=== PATIENT | female | born 1980 | race Caucasian/White ===

== ENCOUNTER 2017-03-19 06:52 | Emergency (ER) | payer OTHER ==
[~2017-03-19] VITALS: Ht 160 cm; Wt 85.0 kg
[~2017-03-19 06:52] MED LIST: ALL DAY10 MG PO; ANTI-FUNGAL12 EX; AUGMENTIN875TAB PO; BIOTIN1000 MCG PO; CIPROFLOXACN500 MG PO; DENAVIR1 % EX; DIFLUCAN150 MG PO; ESTRACE2 M1 PO; ESTRING2 MG PO; FLONASE NASAL50 MCG; LAMICTAL100 M1 PO; LOTRISONE EX; MECLIZINE25 MG PO; METRONIDAZOL0.75 % VA; MULT VITAMI1 PO; PAROXETINE HCL10 MG PO; PROZAC20 MG PO; PYRIDIUM200 MG PO; ROCEPHIN 2250 MG/VIA IM; SB OMEPRAZOLE20 MG; SB OMEPRAZOLE20 MG PO; SYNTHROID75 MCG PO; TOPIRAGEN200 MG PO; TRAZODONE50 MG PO; VITAMIN D-32000 UNI1; VITAMIN D-32000 UNI1 PO; WELLBUTRIN SR150 MG PO; ZITHROMAX500 MG PO
[2017-03-19] MEDS ORDERED: XANAX0.25 MG PO (07:04)
[2017-03-19] MEDS ORDERED: EFFEXOR XR75 MG PO (07:05)
[2017-03-19] MEDS ORDERED: LAMICTAL100 M1 PO (07:05)
[2017-03-19 07:45] LABS: HEMATOCRIT 39.9 % (37.0-47.0); HEMOGLOBIN 13.5 g/dl (12.0-16.0); IMMATURE GRANULOCYTES 0.3 % (0.0-1.0); MEAN CELL VOLUME 87.5 fL CALC (80.0-100.0); MEAN CORPUSCULAR HGB 29.6 pG CALC (26.0-32.0); MEAN CORPUSCULAR HGB CONC 33.8 g/L CALC (32.0-36.0); NEUT# 4.83 thou/uL (2.00-7.15); RED BLOOD COUNT 4.56 mill/uL (4.20-5.60); RED CELL DISTRI WIDTH 11.8 % (11.5-15.5)
[2017-03-19 07:53] LABS: ALBUMIN 4.3 g/dL (3.2-5.0); ALKALINE PHOSPHATASE 90 u/l (38-126); ANION GAP 16 (6-22 (CALC)); BILIRUBIN, TOTAL 0.6 mg/dL (0.0-1.4); BUN 13 mg/dL (7-17); BUN/CREATININE RATIO 14 (12-20 (CALC)); CALCIUM 9.2 mg/dL (8.4-10.2); CARBON DIOXIDE 24 mmol/l (22-30); CHLORIDE 104 mmol/l (95-108); CREATININE 0.9 mg/dL (0.5-1.0); GFR > 60 ML/MIN (>=60 (CALC)); GFR FOR AFR.AMER. > 60 ML/MIN (>=60 (CALC)); GLUCOSE 106 mg/dL (65-105); POTASSIUM 3.7 mmol/l (3.5-5.1); SGOT/AST 48 u/l (14-36); SGPT/ALT 21 u/l (9-52); SODIUM 140 mmol/l (137-146); TOTAL PROTEIN 7.2 g/dL (6.3-8.2)
[2017-03-19 08:05] LABS: MYOGLOBIN 22 ng/mL (0 - 62)
[2017-03-19 08:42] VITALS: BP 104/57
== END 2017-03-19 08:45 | disposition home or self-care (01) | DRG 313 ==
LOC: ED 06:52
PROVIDERS: Emergency Medicine
DX: R07.89 Other chest pain (principal)

== ENCOUNTER 2017-04-24 06:44 | Emergency (ER) | payer OTHER ==
[~2017-04-24] VITALS: Ht 160 cm; Wt 86.0 kg
[~2017-04-24 06:44] MED LIST changes: +EFFEXOR XR75 MG PO; +XANAX0.25 MG PO
[2017-04-24] MEDS ORDERED: ESTRACE2 MG PO (07:01)
[2017-04-24 07:54] LABS: HEMATOCRIT 40.6 % (37.0-47.0); HEMOGLOBIN 13.6 g/dl (12.0-16.0); IMMATURE GRANULOCYTES 0.2 % (0.0-1.0); MEAN CELL VOLUME 88.8 fL CALC (80.0-100.0); MEAN CORPUSCULAR HGB 29.8 pG CALC (26.0-32.0); MEAN CORPUSCULAR HGB CONC 33.5 g/L CALC (32.0-36.0); NEUT# 3.49 thou/uL (2.00-7.15); RED BLOOD COUNT 4.57 mill/uL (4.20-5.60); RED CELL DISTRI WIDTH 12.2 % (11.5-15.5)
[2017-04-24 08:12] LABS: ALBUMIN 4.1 g/dL (3.2-5.0); ALKALINE PHOSPHATASE 76 u/l (38-126); ANION GAP 13 (6-22 (CALC)); BILIRUBIN, TOTAL 0.5 mg/dL (0.0-1.4); BUN 12 mg/dL (7-17); BUN/CREATININE RATIO 16 (12-20 (CALC)); CALCIUM 9.3 mg/dL (8.4-10.2); CARBON DIOXIDE 27 mmol/l (22-30); CHLORIDE 105 mmol/l (95-108); CREATININE 0.7 mg/dL (0.5-1.0); GFR > 60 ML/MIN (>=60 (CALC)); GFR FOR AFR.AMER. > 60 ML/MIN (>=60 (CALC)); GLUCOSE 83 mg/dL (65-105); POTASSIUM 4.4 mmol/l (3.5-5.1); SGOT/AST 26 u/l (14-36); SGPT/ALT 32 u/l (9-52); SODIUM 140 mmol/l (137-146); TOTAL PROTEIN 6.7 g/dL (6.3-8.2)
[2017-04-24] MEDS ORDERED: FIORICET PO (08:57)
[2017-04-24 09:01] VITALS: BP 105/60
== END 2017-04-24 09:11 | disposition home or self-care (01) | DRG 103 ==
LOC: ED 06:44
PROVIDERS: Emergency Medicine
DX: G43.909 Migraine, unspecified, not intractable, without status migrainosus (principal); H53.8 Other visual disturbances; R11.2 Nausea with vomiting, unspecified

== ENCOUNTER 2017-07-05 21:42 | Emergency (ER) | payer OTHER ==
[~2017-07-05] VITALS: Ht 160 cm; Wt 94.0 kg
[~2017-07-05 21:42] MED LIST changes: +ESTRACE2 MG PO; +FIORICET PO
[2017-07-05 22:30] VITALS: BP 131/69
[2017-07-05] MEDS ORDERED: GENTAMICIN0.3 % OS (22:35)
== END 2017-07-05 22:30 | disposition home or self-care (01) | DRG 125 ==
LOC: ED 21:42
DX: H10.89 Other conjunctivitis (principal); F31.9 Bipolar disorder, unspecified; F90.9 Attention-deficit hyperactivity disorder, unspecified type

== ENCOUNTER 2017-09-13 21:13 | Emergency (ER) | payer OTHER ==
[~2017-09-13] VITALS: Ht 160 cm; Wt 95.4 kg
[~2017-09-13 21:13] MED LIST changes: +GENTAMICIN0.3 % OS
[2017-09-13 22:22] LABS: URINE BILIRUBIN - DIPSTICK NEGATIVE (NEGATIVE); URINE BLOOD DIPSTICK NEGATIVE (NEGATIVE); URINE COLOR YELLOW; URINE GLUCOSE - DIPSTICK NEGATIVE (NEGATIVE); URINE KETONE NEGATIVE (NEGATIVE); URINE LEUK ESTERASE NEGATIVE (NEGATIVE); URINE NITRITE - DIPSTICK NEGATIVE (Negative); URINE PH 5.5 (4.5-8.0); URINE PROTEIN - DIPSTICK NEGATIVE (NEG-TRACE); URINE SPECIFIC GRAVITY >=1.030
[2017-09-13 22:25] LABS: URINE CLARITY CLEAR
[2017-09-13] MEDS ORDERED: BACTRIM DS1 TAB PO (22:36)
[2017-09-13] MEDS ORDERED: DIFLUCAN100 M1 PO (22:36)
[2017-09-13 23:00] VITALS: BP 112/69
== END 2017-09-13 22:59 | disposition home or self-care (01) | DRG 696 ==
LOC: ED 21:13
PROVIDERS: Emergency Medicine
DX: R30.0 Dysuria (principal); N35.9 Urethral stricture, unspecified; R35.0 Frequency of micturition

== ENCOUNTER 2017-09-24 06:58 | Emergency (ER) | payer OTHER ==
[~2017-09-24] VITALS: Ht 160 cm; Wt 95.0 kg
[~2017-09-24 06:58] MED LIST changes: +BACTRIM DS1 TAB PO; +DIFLUCAN100 M1 PO
[2017-09-24] MEDS ORDERED: LEVOTHYROXIN50 MCG PO (07:22)
[2017-09-24] MEDS ORDERED: ALPRAZOLAM0.5 MG PO (07:23)
[2017-09-24] MEDS ORDERED: VENLAFAXINE H37.5 MG PO (07:24)
[2017-09-24] MEDS ORDERED: ARIPIPRAZOLE10 MG PO (07:24)
[2017-09-24] MEDS ORDERED: VYVANSE60 MG PO (07:25)
[2017-09-24] MEDS ORDERED: TOPIRAMATE100 MG PO (07:26)
[2017-09-24 07:52] LABS: HEMATOCRIT 43.4 % (37.0-47.0); HEMOGLOBIN 14.5 g/dl (12.0-16.0); IMMATURE GRANULOCYTES 0.1 % (0.0-1.0); MEAN CELL VOLUME 88.6 fL CALC (80.0-100.0); MEAN CORPUSCULAR HGB 29.6 pG CALC (26.0-32.0); MEAN CORPUSCULAR HGB CONC 33.4 g/L CALC (32.0-36.0); NEUT# 3.77 thou/uL (2.00-7.15); RED BLOOD COUNT 4.9 mill/uL (4.20-5.60); RED CELL DISTRI WIDTH 11.9 % (11.5-15.5)
[2017-09-24 08:04] LABS: INFLUENZA A NONE DETECTED (NONE DETECT); INFLUENZA B NONE DETECTED (NONE DETECT)
[2017-09-24 08:18] LABS: ALBUMIN 4.3 g/dL (3.2-5.0); ALKALINE PHOSPHATASE 91 u/l (38-126); ANION GAP 16 (6-22 (CALC)); BILIRUBIN, TOTAL 0.4 mg/dL (0.0-1.4); BUN 13 mg/dL (7-17); BUN/CREATININE RATIO 12 (12-20 (CALC)); CALCIUM 9.7 mg/dL (8.4-10.2); CARBON DIOXIDE 22 mmol/l (22-30); CHLORIDE 111 mmol/l (95-108); CREATININE 1.1 mg/dL (0.5-1.0); GFR 56 ML/MIN (>=60 (CALC)); GFR FOR AFR.AMER. > 60 ML/MIN (>=60 (CALC)); GLUCOSE 109 mg/dL (65-105); POTASSIUM 4.4 mmol/l (3.5-5.1); SGOT/AST 23 u/l (14-36); SGPT/ALT 28 u/l (9-52); SODIUM 146 mmol/l (137-146); TOTAL PROTEIN 6.9 g/dL (6.3-8.2)
[2017-09-24 08:40] VITALS: BP 117/62
== END 2017-09-24 08:55 | disposition home or self-care (01) | DRG 880 ==
LOC: ED 06:58
PROVIDERS: Emergency Medicine
DX: F41.9 Anxiety disorder, unspecified (principal); B34.9 Viral infection, unspecified; R07.89 Other chest pain; R53.1 Weakness; M79.1 Myalgia

== ENCOUNTER 2018-08-27 09:35 | Emergency (ER) | payer OTHER ==
[~2018-08-27] VITALS: Ht 160 cm; Wt 93.3 kg
[~2018-08-27 09:35] MED LIST changes: +ALPRAZOLAM0.5 MG PO; +ARIPIPRAZOLE10 MG PO; +LEVOTHYROXIN50 MCG PO; +TOPIRAMATE100 MG PO; +VENLAFAXINE H37.5 MG PO; +VYVANSE60 MG PO
[2018-08-27] MEDS ORDERED: ADDERALL XR25 MG PO (09:59)
[2018-08-27 11:02] LABS: URINE BILIRUBIN - DIPSTICK NEGATIVE (NEGATIVE); URINE BLOOD DIPSTICK NEGATIVE (NEGATIVE); URINE COLOR YELLOW; URINE GLUCOSE - DIPSTICK NEGATIVE (NEGATIVE); URINE KETONE NEGATIVE (NEGATIVE); URINE LEUK ESTERASE NEGATIVE (NEGATIVE); URINE NITRITE - DIPSTICK NEGATIVE (Negative); URINE PROTEIN - DIPSTICK NEGATIVE (NEG-TRACE); URINE SPECIFIC GRAVITY 1.015; URINE UROBILINOGEN - DIPSTICK 0.2 E.U./dL (0.2)
[2018-08-27 11:10] LABS: URINE CLARITY CLEAR
[2018-08-27 11:11] LABS: BARBITURATES NEGATIVE (NEGATIVE); COCAINE NEGATIVE (NEGATIVE); METHADONE NEGATIVE (NEGATIVE); OXCYCODONE NEGATIVE (NEGATIVE); TETRAHYDROCANNABIONOL NEGATIVE (NEGATIVE); TRICYLIC ANTIDEPRESSANTS NEGATIVE (NEGATIVE)
[2018-08-27 11:15] LABS: HEMATOCRIT 43.6 % (37.0-47.0); HEMOGLOBIN 14.5 g/dl (12.0-16.0); IMMATURE GRANULOCYTES 0.3 % (0.0-5.0); MEAN CELL VOLUME 87.9 fL CALC (80.0-100.0); MEAN CORPUSCULAR HGB 29.2 pG CALC (26.0-32.0); MEAN CORPUSCULAR HGB CONC 33.3 g/L CALC (32.0-36.0); NEUT# 4.03 thou/uL (2.00-7.15); RED BLOOD COUNT 4.96 mill/uL (4.20-5.60); RED CELL DISTRI WIDTH 12.5 % (11.5-15.5)
[2018-08-27 11:16] LABS: ALBUMIN 4.3 g/dL (3.2-5.0); ALKALINE PHOSPHATASE 118 u/l (38-126); ANION GAP 14 (6-22 (CALC)); BILIRUBIN, TOTAL 0.4 mg/dL (0.0-1.4); BUN 14 mg/dL (7-17); BUN/CREATININE RATIO 14 (12-20 (CALC)); CARBON DIOXIDE 22 mmol/l (22-30); CHLORIDE 111 mmol/l (95-108); GFR > 60 ML/MIN (>=60 (CALC)); GFR FOR AFR.AMER. > 60 ML/MIN (>=60 (CALC)); POTASSIUM 4.5 mmol/l (3.5-5.1); SGOT/AST 17 u/l (14-36); SODIUM 142 mmol/l (137-146); TOTAL PROTEIN 7.2 g/dL (6.3-8.2)
[2018-08-27] MEDS ORDERED: TORADOL PO (11:46)
[2018-08-27 12:07] VITALS: BP 126/72
== END 2018-08-27 12:07 | disposition home or self-care (01) ==
LOC: ED 09:35
PROVIDERS: Emergency Medicine
DX: R51 Headache (principal); G89.29 Other chronic pain; R11.0 Nausea; R07.81 Pleurodynia; R10.9 Unspecified abdominal pain

== ENCOUNTER 2018-09-07 08:29 | Emergency (ER) | payer OTHER ==
[~2018-09-07] VITALS: Ht 160 cm; Wt 93.2 kg
[~2018-09-07 08:29] MED LIST changes: +ADDERALL XR25 MG PO; +TORADOL PO
[2018-09-07 09:36] VITALS: BP 119/64
[2018-09-07] MEDS ORDERED: BACTRIM DS1 TAB PO (09:36)
[2018-09-07] MEDS ORDERED: MUPIROCIN21 TOP (09:38)
== END 2018-09-07 09:43 | disposition home or self-care (01) ==
LOC: ED 08:29
DX: S00.85XA Superficial foreign body of other part of head, initial encounter (principal)

== ENCOUNTER 2019-02-23 16:24 | Emergency (ER) | payer OTHER ==
[~2019-02-23] VITALS: Ht 160 cm; Wt 100.0 kg
[~2019-02-23 16:24] MED LIST changes: +MUPIROCIN21 TOP
[2019-02-23 17:02] LABS: HEMATOCRIT 40.3 % (37.0-47.0); HEMOGLOBIN 13.2 g/dl (12.0-16.0); IMMATURE GRANULOCYTES 0.3 % (0.0-5.0); MEAN CELL VOLUME 85.4 fL CALC (80.0-100.0); MEAN CORPUSCULAR HGB CONC 32.8 g/L CALC (32.0-36.0); NEUT# 4.01 thou/uL (2.00-7.15); RED BLOOD COUNT 4.72 mill/uL (4.20-5.60); RED CELL DISTRI WIDTH 12.6 % (11.5-15.5)
[2019-02-23] MEDS ORDERED: VALTREX1 GM PO (17:27)
[2019-02-23] MEDS ORDERED: PREDNISONE50 MG PO (17:27)
[2019-02-23 17:38] VITALS: BP 141/70
== END 2019-02-23 17:40 | disposition home or self-care (01) ==
LOC: ED 16:24
PROVIDERS: Family Medicine
DX: J02.9 Acute pharyngitis, unspecified (principal); B00.1 Herpesviral vesicular dermatitis; R50.9 Fever, unspecified; R05 Cough; R06.02 Shortness of breath; J34.89 Other specified disorders of nose and nasal sinuses

== ENCOUNTER 2019-05-10 19:14 | Emergency (ER) | payer OTHER ==
[~2019-05-10] VITALS: Ht 160 cm; Wt 104.0 kg
[~2019-05-10 19:14] MED LIST changes: +PREDNISONE50 MG PO; +VALTREX1 GM PO
[2019-05-10] MEDS ORDERED: GENTAK0.32 OU (19:41)
[2019-05-10 19:45] VITALS: BP 134/86
== END 2019-05-10 19:45 | disposition home or self-care (01) ==
LOC: ED 19:14
DX: H10.13 Acute atopic conjunctivitis, bilateral (principal)

== ENCOUNTER 2019-07-05 16:32 | Emergency (ER) | payer OTHER ==
[~2019-07-05] VITALS: Ht 160 cm; Wt 110.0 kg
[~2019-07-05 16:32] MED LIST changes: +GENTAK0.32 OU
[2019-07-05 17:10] LABS: HEMATOCRIT 42.9 % (37.0-47.0); HEMOGLOBIN 14.1 g/dl (12.0-16.0); IMMATURE GRANULOCYTES 0.3 % (0.0-5.0); MEAN CORPUSCULAR HGB 28.3 pG CALC (26.0-32.0); MEAN CORPUSCULAR HGB CONC 32.9 g/L CALC (32.0-36.0); NEUT# 6.01 thou/uL (2.00-7.15); RED BLOOD COUNT 4.99 mill/uL (4.20-5.60); RED CELL DISTRI WIDTH 12.6 % (11.5-15.5)
[2019-07-05 17:16] LABS: ALBUMIN 4.4 g/dL (3.2-5.0); ALKALINE PHOSPHATASE 138 u/l (38-126); ANION GAP 15 (6-22 (CALC)); BILIRUBIN, TOTAL 0.5 mg/dL (0.0-1.4); BUN 17 mg/dL (7-17); BUN/CREATININE RATIO 20 (12-20 (CALC)); CARBON DIOXIDE 26 mmol/l (22-30); CHLORIDE 103 mmol/l (95-108); CREATININE 0.8 mg/dL (0.5-1.0); GFR > 60 ML/MIN (>=60 (CALC)); GFR FOR AFR.AMER. > 60 ML/MIN (>=60 (CALC)); POTASSIUM 4.5 mmol/l (3.5-5.1); SGOT/AST 25 u/l (14-36); SODIUM 140 mmol/l (137-146); TOTAL PROTEIN 7.4 g/dL (6.3-8.2)
[2019-07-05 17:51] LABS: URINE BILIRUBIN - DIPSTICK NEGATIVE (NEGATIVE); URINE BLOOD DIPSTICK NEGATIVE (NEGATIVE); URINE COLOR YELLOW; URINE GLUCOSE - DIPSTICK NEGATIVE (NEGATIVE); URINE KETONE NEGATIVE (NEGATIVE); URINE LEUK ESTERASE NEGATIVE (NEGATIVE); URINE NITRITE - DIPSTICK NEGATIVE (Negative); URINE PROTEIN - DIPSTICK NEGATIVE (NEG-TRACE); URINE SPECIFIC GRAVITY >=1.030; URINE UROBILINOGEN - DIPSTICK 0.2 E.U./dL (0.2)
[2019-07-05 19:16] VITALS: BP 117/62
== END 2019-07-05 19:17 | disposition home or self-care (01) ==
LOC: ED 16:32
PROVIDERS: Emergency Medicine
DX: R07.89 Other chest pain (principal)

== ENCOUNTER 2019-11-26 | Emergency (ER) | payer OTHER ==
[2019-11-26 21:23] LABS: URINE BILIRUBIN - DIPSTICK NEGATIVE (NEGATIVE); URINE BLOOD DIPSTICK NEGATIVE (NEGATIVE); URINE COLOR YELLOW; URINE GLUCOSE - DIPSTICK NEGATIVE (NEGATIVE); URINE KETONE NEGATIVE (NEGATIVE); URINE NITRITE - DIPSTICK NEGATIVE (Negative); URINE PH 6.5 (4.5-8.0); URINE PROTEIN - DIPSTICK NEGATIVE (NEG-TRACE); URINE SPECIFIC GRAVITY 1.025; URINE UROBILINOGEN - DIPSTICK 0.2 E.U./dL (0.2)
[2019-11-26 21:29] LABS: URINE LEUK ESTERASE SMALL (NEGATIVE)
[2019-11-26 21:35] LABS: HEMATOCRIT 43.6 % (37.0-47.0); HEMOGLOBIN 13.9 g/dl (12.0-16.0); IMMATURE GRANULOCYTES 0.2 % (0.0-5.0); MEAN CELL VOLUME 86.2 fL CALC (80.0-100.0); MEAN CORPUSCULAR HGB 27.5 pG CALC (26.0-32.0); MEAN CORPUSCULAR HGB CONC 31.9 g/L CALC (32.0-36.0); NEUT# 4.32 thou/uL (2.00-7.15); RED BLOOD COUNT 5.06 mill/uL (4.20-5.60); RED CELL DISTRI WIDTH 12.4 % (11.5-15.5)
[2019-11-26 21:45] LABS: ALBUMIN 4.4 g/dL (3.2-5.0); ALKALINE PHOSPHATASE 129 u/l (38-126); AMYLASE 79 u/l (30-110); ANION GAP 14 (6-22 (CALC)); BILIRUBIN, TOTAL 0.5 mg/dL (0.0-1.4); BUN 13 mg/dL (7-17); BUN/CREATININE RATIO 14 (12-20 (CALC)); CARBON DIOXIDE 26 mmol/l (22-30); CHLORIDE 103 mmol/l (95-108); CREATININE 0.9 mg/dL (0.5-1.0); GFR > 60 ML/MIN (>=60 (CALC)); GFR FOR AFR.AMER. > 60 ML/MIN (>=60 (CALC)); LIPASE 159 u/l (23-300); POTASSIUM 4.7 mmol/l (3.5-5.1); SGOT/AST 24 u/l (14-36); SODIUM 139 mmol/l (137-146); TOTAL PROTEIN 7.6 g/dL (6.3-8.2)
[2019-11-26 21:47] LABS: URINE BACTERIA FEW hpf; URINE SQUAMOUS EPITHELIAL CELL FEW EPI/hpf (0-FEW)
[2019-11-26 22:15] LABS: TSH, 3RD GENERATION 2.35 uIU/mL (0.47 - 4.68)
[2019-11-26] MEDS ORDERED: PROTONIX40 MG PO (22:31)
[2019-11-26] MEDS ORDERED: NP THYROID30 MG PO (23:27)
[2019-11-26] MEDS ORDERED: DULOXETINE HYDR60 MG PO (23:38)
== END 2019-11-26 22:45 | disposition home or self-care (01) ==
PROVIDERS: Family Medicine
DX: K29.70 Gastritis, unspecified, without bleeding (principal); E03.9 Hypothyroidism, unspecified; Z87.11 Personal history of peptic ulcer disease

== ENCOUNTER 2020-01-04 | Emergency (ER) | payer OTHER ==
[~2020-01-04] MED LIST changes: +DULOXETINE HYDR60 MG PO; +NP THYROID30 MG PO; +PROTONIX40 MG PO
== END 2020-01-04 20:40 | disposition home or self-care (01) ==
DX: S90.412A Abrasion, left great toe, initial encounter (principal); W20.8XXA Other cause of strike by thrown, projected or falling object, initial encounter; Y93.89 Activity, other specified; Y92.009 Unspecified place in unspecified non-institutional (private) residence as the place of occurrence of the external cause

== ENCOUNTER 2020-03-01 23:08 | Emergency (ER) | payer OTHER ==
[2020-03-01] MEDS ORDERED: ASPIRIN81 MG PO (23:42)
[2020-03-01] MEDS ORDERED: ARMOUR THYRO30 MG PO (23:42)
[2020-03-01] MEDS ORDERED: METOPROL TAR25 MG PO (23:42)
[2020-03-02 00:13] LABS: HEMATOCRIT 38.6 % (37.0-47.0); HEMOGLOBIN 12.5 g/dl (12.0-16.0); IMMATURE GRANULOCYTES 0.5 % (0.0-5.0); MEAN CELL VOLUME 88.5 fL CALC (80.0-100.0); MEAN CORPUSCULAR HGB 28.7 pG CALC (26.0-32.0); MEAN CORPUSCULAR HGB CONC 32.4 g/dL CAL (32.0-36.0); NEUT# 6.03 thou/uL (2.00-7.15); RED BLOOD COUNT 4.36 mill/uL (4.20-5.60); RED CELL DISTRI WIDTH 12.9 % (11.5-15.5)
[2020-03-02 00:31] LABS: ALKALINE PHOSPHATASE 132 u/l (38-126); ANION GAP 10 (6-22 (CALC)); BILIRUBIN, TOTAL 0.4 mg/dL (0.0-1.4); BUN 15 mg/dL (7-17); BUN/CREATININE RATIO 19 (12-20 (CALC)); CARBON DIOXIDE 27 mmol/l (22-30); CHLORIDE 105 mmol/l (95-108); CREATININE 0.8 mg/dL (0.5-1.0); GFR > 60 ML/MIN (>=60 (CALC)); GFR FOR AFR.AMER. > 60 ML/MIN (>=60 (CALC)); POTASSIUM 4.3 mmol/l (3.5-5.1); SGOT/AST 31 u/l (14-36); SODIUM 139 mmol/l (137-146); TOTAL PROTEIN 6.8 g/dL (6.3-8.2)
[2020-03-02 00:41] LABS: ACT PARTIAL THROMBO TIME 26.1 SECONDS (20.0-32.5); D-DIMER 0.17 mg/L (0.19-0.60); INTERNATIONAL NORMALIZED RATIO 0.9 RATIO (0.7-1.3); PROTHROMBIN TIME 9.3 SECONDS (9.0-12.5)
[2020-03-02 00:43] LABS: MYOGLOBIN 23 ng/mL (0 - 62)
[2020-03-02 01:02] LABS: TSH, 3RD GENERATION 4.81 uIU/mL (0.47 - 4.68)
[2020-03-02 01:34] VITALS: BP 134/60
== END 2020-03-02 01:35 | disposition home or self-care (01) ==
LOC: ED 23:08
PROVIDERS: Family Medicine
DX: K29.70 Gastritis, unspecified, without bleeding (principal); E03.9 Hypothyroidism, unspecified; R07.89 Other chest pain; R19.7 Diarrhea, unspecified; R11.10 Vomiting, unspecified

== ENCOUNTER 2020-03-27 15:16 | Emergency (ER) | payer OTHER ==
[~2020-03-27] VITALS: Ht 160 cm; Wt 106.8 kg
[~2020-03-27 15:16] MED LIST changes: +ARMOUR THYRO30 MG PO; +ASPIRIN81 MG PO; +METOPROL TAR25 MG PO
[2020-03-27] MEDS ORDERED: PENICILLN VK500 MG PO (15:37)
[2020-03-27 15:40] VITALS: BP 116/76
[2020-03-27] MEDS ORDERED: DIFLUCAN100 M1 PO ×2 (15:43)
[2020-03-27] MEDS ORDERED: TRAZODONE50 MG PO (15:44)
[2020-03-27] MEDS ORDERED: FLUOXETINE HCL20 MG PO (15:44)
== END 2020-03-27 15:40 | disposition home or self-care (01) ==
LOC: ED 15:16
DX: K02.9 Dental caries, unspecified (principal); K04.7 Periapical abscess without sinus

== ENCOUNTER 2020-06-19 15:54 | Emergency (ER) | payer OTHER ==
[~2020-06-19] VITALS: Ht 160 cm; Wt 118.0 kg
[~2020-06-19 15:54] MED LIST changes: +FLUOXETINE HCL20 MG PO; +PENICILLN VK500 MG PO
[2020-06-19 16:45] LABS: HEMATOCRIT 39.1 % (37.0-47.0); HEMOGLOBIN 12.5 g/dl (12.0-16.0); IMMATURE GRANULOCYTES 0.4 % (0.0-5.0); MEAN CELL VOLUME 86.7 fL CALC (80.0-100.0); MEAN CORPUSCULAR HGB 27.7 pG CALC (26.0-32.0); NEUT# 4.84 thou/uL (2.00-7.15); RED BLOOD COUNT 4.51 mill/uL (4.20-5.60)
[2020-06-19 16:46] LABS: URINE BILIRUBIN - DIPSTICK NEGATIVE (NEGATIVE); URINE BLOOD DIPSTICK NEGATIVE (NEGATIVE); URINE COLOR YELLOW; URINE GLUCOSE - DIPSTICK NEGATIVE (NEGATIVE); URINE KETONE NEGATIVE (NEGATIVE); URINE LEUK ESTERASE NEGATIVE (NEGATIVE); URINE NITRITE - DIPSTICK NEGATIVE (Negative); URINE PROTEIN - DIPSTICK NEGATIVE (NEG-TRACE); URINE SPECIFIC GRAVITY >=1.030; URINE UROBILINOGEN - DIPSTICK 0.2 E.U./dL (0.2)
[2020-06-19] MEDS ORDERED: OMEPRAZOLE10 MG PO (16:58)
[2020-06-19 17:00] LABS: ALBUMIN 4.1 g/dL (3.2-5.0); ALKALINE PHOSPHATASE 122 u/l (38-126); ANION GAP 11 (6-22 (CALC)); BILIRUBIN, TOTAL 0.5 mg/dL (0.0-1.4); BUN 24 mg/dL (7-17); BUN/CREATININE RATIO 21 (12-20 (CALC)); CARBON DIOXIDE 29 mmol/l (22-30); CHLORIDE 102 mmol/l (95-108); CREATININE 1.1 mg/dL (0.5-1.0); GFR 56 ML/MIN (>=60 (CALC)); GFR FOR AFR.AMER. > 60 ML/MIN (>=60 (CALC)); SGOT/AST 28 u/l (14-36); SODIUM 137 mmol/l (137-146)
[2020-06-19 17:45] VITALS: BP 138/70
== END 2020-06-19 17:46 | disposition home or self-care (01) ==
LOC: ED 15:54
DX: R51 Headache (principal); G43.909 Migraine, unspecified, not intractable, without status migrainosus; Z20.828 Contact with and (suspected) exposure to other viral communicable diseases

== ENCOUNTER 2020-07-01 16:46 | Emergency (ER) | payer OTHER ==
[~2020-07-01] VITALS: Ht 160 cm; Wt 121.4 kg
[~2020-07-01 16:46] MED LIST changes: +OMEPRAZOLE10 MG PO
[2020-07-01] MEDS ORDERED: CLINDAMYCIN300 M1 PO (17:02)
[2020-07-01] MEDS ORDERED: LEXAPRO20 MG PO (17:04)
[2020-07-01 17:05] VITALS: BP 145/63
== END 2020-07-01 17:15 | disposition home or self-care (01) ==
LOC: ED 16:46
DX: K08.89 Other specified disorders of teeth and supporting structures (principal)

== ENCOUNTER 2020-09-11 17:42 | Emergency (ER) | payer OTHER ==
[~2020-09-11] VITALS: Ht 160 cm; Wt 127.0 kg
[~2020-09-11 17:42] MED LIST changes: +CLINDAMYCIN300 M1 PO; +LEXAPRO20 MG PO
[2020-09-11 18:29] LABS: HEMOGLOBIN 13.1 g/dl (12.0-16.0); IMMATURE GRANULOCYTES 0.2 % (0.0-5.0); MEAN CORPUSCULAR HGB 27.5 pG CALC (26.0-32.0); NEUT# 4.53 thou/uL (2.00-7.15); RED BLOOD COUNT 4.77 mill/uL (4.20-5.60); RED CELL DISTRI WIDTH 12.9 % (11.5-15.5)
[2020-09-11 18:32] LABS: URINE BILIRUBIN - DIPSTICK NEGATIVE (NEGATIVE); URINE BLOOD DIPSTICK NEGATIVE (NEGATIVE); URINE COLOR YELLOW; URINE GLUCOSE - DIPSTICK NEGATIVE (NEGATIVE); URINE KETONE NEGATIVE (NEGATIVE); URINE LEUK ESTERASE NEGATIVE (NEGATIVE); URINE NITRITE - DIPSTICK NEGATIVE (Negative); URINE PROTEIN - DIPSTICK NEGATIVE (NEG-TRACE); URINE UROBILINOGEN - DIPSTICK 0.2 E.U./dL (0.2)
[2020-09-11 18:34] LABS: HCG SERUM/URINE (NEG/POS) NEGATIVE (NEGATIVE)
[2020-09-11 18:36] LABS: ALBUMIN 4.1 g/dL (3.2-5.0); ALKALINE PHOSPHATASE 110 u/l (38-126); ANION GAP 10 (6-22 (CALC)); BILIRUBIN, TOTAL 0.5 mg/dL (0.0-1.4); BUN 13 mg/dL (7-17); BUN/CREATININE RATIO 11 (12-20 (CALC)); CARBON DIOXIDE 28 mmol/l (22-30); CHLORIDE 107 mmol/l (95-108); CREATININE 1.2 mg/dL (0.5-1.0); GFR 50 ML/MIN (>=60 (CALC)); GFR FOR AFR.AMER. > 60 ML/MIN (>=60 (CALC)); LIPASE 197 u/l (23-300); POTASSIUM 4.3 mmol/l (3.5-5.1); SGOT/AST 30 u/l (14-36); SODIUM 140 mmol/l (137-146)
[2020-09-11] MEDS ORDERED: TORADOL PO (19:27)
[2020-09-11 19:40] VITALS: BP 126/78
== END 2020-09-11 19:40 | disposition home or self-care (01) ==
LOC: ED 17:42
PROVIDERS: Family Medicine
DX: G43.909 Migraine, unspecified, not intractable, without status migrainosus (principal); F31.9 Bipolar disorder, unspecified; Z87.11 Personal history of peptic ulcer disease; Z20.828 Contact with and (suspected) exposure to other viral communicable diseases

== ENCOUNTER 2020-12-06 16:08 | Emergency (ER) | payer OTHER ==
[~2020-12-06] VITALS: Ht 160 cm; Wt 122.7 kg
[2020-12-06] MEDS ORDERED: FLEXERIL5 MG PO (18:11)
[2020-12-06] MEDS ORDERED: ULTRAM50 MG PO (18:11)
[2020-12-06] MEDS ORDERED: MOTRIN800 MG PO (18:11)
[2020-12-06 18:20] VITALS: BP 131/73
== END 2020-12-06 18:20 | disposition home or self-care (01) ==
LOC: ED 16:08
DX: S39.012A Strain of muscle, fascia and tendon of lower back, initial encounter (principal); F31.9 Bipolar disorder, unspecified; X50.0XXA Overexertion from strenuous movement or load, initial encounter; Y93.89 Activity, other specified; Y92.009 Unspecified place in unspecified non-institutional (private) residence as the place of occurrence of the external cause; Z87.11 Personal history of peptic ulcer disease

== ENCOUNTER 2020-12-14 19:32 | Emergency (ER) | payer OTHER ==
[~2020-12-14] VITALS: Ht 160 cm; Wt 118.0 kg
[~2020-12-14 19:32] MED LIST changes: +FLEXERIL5 MG PO; +MOTRIN800 MG PO; +ULTRAM50 MG PO
[2020-12-14 21:58] VITALS: BP 144/73
== END 2020-12-14 22:03 | disposition home or self-care (01) ==
LOC: ED 19:32
DX: J11.1 Influenza due to unidentified influenza virus with other respiratory manifestations (principal); Z20.822 Contact with and (suspected) exposure to COVID-19

== ENCOUNTER 2020-12-17 08:21 | Emergency (ER) | payer OTHER ==
[~2020-12-17] VITALS: Ht 160 cm; Wt 125.0 kg
[2020-12-17 09:25] LABS: HEMOGLOBIN 12.8 g/dl (12.0-16.0); IMMATURE GRANULOCYTES 0.3 % (0.0-5.0); MEAN CELL VOLUME 85.7 fL CALC (80.0-100.0); MEAN CORPUSCULAR HGB 27.4 pG CALC (26.0-32.0); NEUT# 3.7 thou/uL (2.00-7.15); RED BLOOD COUNT 4.67 mill/uL (4.20-5.60); RED CELL DISTRI WIDTH 12.7 % (11.5-15.5)
[2020-12-17 09:43] LABS: PROTHROMBIN TIME 10.2 SECONDS (9.0-12.5)
[2020-12-17 09:45] LABS: ALKALINE PHOSPHATASE 107 u/l (38-126); ANION GAP 10 (6-22 (CALC)); BILIRUBIN, TOTAL 0.7 mg/dL (0.0-1.4); BUN 14 mg/dL (7-17); BUN/CREATININE RATIO 17 (12-20 (CALC)); CARBON DIOXIDE 29 mmol/l (22-30); CHLORIDE 104 mmol/l (95-108); CREATININE 0.8 mg/dL (0.5-1.0); GFR > 60 ML/MIN (>=60 (CALC)); GFR FOR AFR.AMER. > 60 ML/MIN (>=60 (CALC)); LIPASE 93 u/l (23-300); POTASSIUM 4.1 mmol/l (3.5-5.1); SGOT/AST 44 u/l (14-36); SODIUM 138 mmol/l (137-146); TOTAL PROTEIN 6.8 g/dL (6.3-8.2)
[2020-12-17 09:53] LABS: D-DIMER 0.32 mg/L (0.19-0.60)
[2020-12-17 10:45] VITALS: BP 132/83
== END 2020-12-17 10:55 | disposition home or self-care (01) ==
LOC: ED 08:21
PROVIDERS: Emergency Medicine
DX: R07.81 Pleurodynia (principal); I10 Essential (primary) hypertension; F31.9 Bipolar disorder, unspecified; K27.9 Peptic ulcer, site unspecified, unspecified as acute or chronic, without hemorrhage or perforation; Z20.822 Contact with and (suspected) exposure to COVID-19

== ENCOUNTER 2021-02-25 10:40 | Emergency (ER) | payer OTHER ==
[~2021-02-25] VITALS: Ht 160 cm; Wt 100.0 kg
[2021-02-25] MEDS ORDERED: ARMOUR THYROID15 MG PO (11:24)
[2021-02-25] MEDS ORDERED: ASPIRIN81 MG PO (11:24)
[2021-02-25 11:28] LABS: URINE BILIRUBIN - DIPSTICK NEGATIVE (NEGATIVE); URINE BLOOD DIPSTICK NEGATIVE (NEGATIVE); URINE COLOR YELLOW; URINE GLUCOSE - DIPSTICK NEGATIVE (NEGATIVE); URINE KETONE NEGATIVE (NEGATIVE); URINE LEUK ESTERASE TRACE (NEGATIVE); URINE PH 7.5 (4.5-8.0); URINE PROTEIN - DIPSTICK NEGATIVE (NEG-TRACE); URINE UROBILINOGEN - DIPSTICK 0.2 E.U./dL (0.2)
[2021-02-25 11:29] LABS: HEMOGLOBIN 13.6 g/dl (12.0-16.0); IMMATURE GRANULOCYTES 0.2 % (0.0-5.0); MEAN CORPUSCULAR HGB 27.5 pG CALC (26.0-32.0); MEAN CORPUSCULAR HGB CONC 32.4 g/dL CAL (32.0-36.0); NEUT# 3.21 thou/uL (2.00-7.15); RED BLOOD COUNT 4.94 mill/uL (4.20-5.60)
[2021-02-25 11:30] LABS: URINE NITRITE - DIPSTICK NEGATIVE (Negative)
[2021-02-25 11:51] LABS: ALBUMIN 4.2 g/dL (3.2-5.0); ALKALINE PHOSPHATASE 118 u/l (38-126); ANION GAP 12 (6-22 (CALC)); BILIRUBIN, TOTAL 0.9 mg/dL (0.0-1.4); BUN 14 mg/dL (7-17); BUN/CREATININE RATIO 16 (12-20 (CALC)); C-REACTIVE PROTEIN 1.4 mg/dL (0-0.9); CARBON DIOXIDE 26 mmol/l (22-30); CHLORIDE 103 mmol/l (95-108); CREATININE 0.9 mg/dL (0.5-1.0); GFR > 60 ML/MIN (>=60 (CALC)); GFR FOR AFR.AMER. > 60 ML/MIN (>=60 (CALC)); POTASSIUM 3.9 mmol/l (3.5-5.1); SGOT/AST 55 u/l (14-36); SODIUM 137 mmol/l (137-146); TOTAL PROTEIN 7.7 g/dL (6.3-8.2)
[2021-02-25 12:19] LABS: TSH, 3RD GENERATION 2.47 uIU/mL (0.47 - 4.68)
[2021-02-25 12:29] VITALS: BP 140/72
[2021-02-25] MEDS ORDERED: VOLTAREN1%GEL TOP (12:29)
[2021-02-25] MEDS ORDERED: PRILOSEC20 MG/CAP PO (12:29)
== END 2021-02-25 12:29 | disposition home or self-care (01) ==
LOC: ED 10:40
PROVIDERS: Family Medicine
DX: M51.17 Intervertebral disc disorders with radiculopathy, lumbosacral region (principal); H93.13 Tinnitus, bilateral; I10 Essential (primary) hypertension; E66.9 Obesity, unspecified; F31.9 Bipolar disorder, unspecified; Z79.82 Long term (current) use of aspirin

== ENCOUNTER 2021-04-22 17:46 | Emergency (ER) | payer OTHER ==
[~2021-04-22] VITALS: Ht 160 cm; Wt 116.0 kg
[~2021-04-22 17:46] MED LIST changes: +ARMOUR THYROID15 MG PO; +PRILOSEC20 MG/CAP PO; +VOLTAREN1%GEL TOP
[2021-04-22] MEDS ORDERED: PENICILLIN PO (18:14)
[2021-04-22] MEDS ORDERED: MOTRIN400 MG/TAB PO (18:15)
[2021-04-22 20:10] VITALS: BP 138/67
== END 2021-04-22 20:10 | disposition home or self-care (01) ==
LOC: ED 17:46
DX: R19.7 Diarrhea, unspecified (principal); I10 Essential (primary) hypertension; F31.9 Bipolar disorder, unspecified; Z87.11 Personal history of peptic ulcer disease; Z98.84 Bariatric surgery status

== ENCOUNTER 2021-06-04 16:32 | Emergency (ER) | payer OTHER ==
[~2021-06-04 16:32] MED LIST changes: +MOTRIN400 MG/TAB PO; +PENICILLIN PO
== END 2021-06-04 18:21 | disposition left against medical advice (07) ==
LOC: ED 16:32 → LWOBS 18:21 → ED 18:21
DX: Z91.19 Patient's noncompliance with other medical treatment and regimen (principal)

== ENCOUNTER 2021-06-13 21:46 | Emergency (ER) | payer OTHER | END 2021-06-13 22:25 | disposition home or self-care (01) | DRG 951 | LOC: ED 21:46 → LWOBS 22:25 | DX: Z53.21 Procedure and treatment not carried out due to patient leaving prior to being seen by health care provider (principal) ==

== ENCOUNTER 2021-10-17 12:48 | Emergency (ER) | payer OTHER ==
[~2021-10-17] VITALS: Ht 160 cm; Wt 90.0 kg
[2021-10-17] MEDS ORDERED: ARMOUR THYRO15 MG PO (13:47)
[2021-10-17] MEDS ORDERED: ZOFRAN4 M1 PO (14:03)
[2021-10-17 14:38] VITALS: BP 138/87
== END 2021-10-17 14:38 | disposition home or self-care (01) ==
LOC: ED 12:48
DX: U07.1 COVID-19 (principal); I10 Essential (primary) hypertension; F31.9 Bipolar disorder, unspecified

== ENCOUNTER 2021-10-27 09:30 | Emergency (ER) | payer OTHER ==
[~2021-10-27] VITALS: Ht 160 cm; Wt 101.0 kg
[~2021-10-27 09:30] MED LIST changes: +ARMOUR THYRO15 MG PO; +ZOFRAN4 M1 PO
[2021-10-27 10:28] LABS: HEMATOCRIT 45.4 % (37.0-47.0); HEMOGLOBIN 14.5 g/dl (12.0-16.0); IMMATURE GRANULOCYTES 0.2 % (0.0-5.0); MEAN CELL VOLUME 86.3 fL CALC (80.0-100.0); MEAN CORPUSCULAR HGB 27.6 pG CALC (26.0-32.0); MEAN CORPUSCULAR HGB CONC 31.9 g/dL CAL (32.0-36.0); NEUT# 3.29 thou/uL (2.00-7.15); RED BLOOD COUNT 5.26 mill/uL (4.20-5.60); RED CELL DISTRI WIDTH 13.5 % (11.5-15.5)
[2021-10-27 10:45] LABS: ALBUMIN 3.8 g/dL (3.2-5.0); ALKALINE PHOSPHATASE 124 u/l (38-126); ANION GAP 10 (6-22 (CALC)); BILIRUBIN, TOTAL 0.6 mg/dL (0.0-1.4); BUN 15 mg/dL (7-17); BUN/CREATININE RATIO 15 (12-20 (CALC)); CARBON DIOXIDE 31 mmol/l (22-30); CHLORIDE 101 mmol/l (95-108); GFR > 60 ML/MIN (>=60 (CALC)); GFR FOR AFR.AMER. > 60 ML/MIN (>=60 (CALC)); LIPASE 218 u/l (23-300); POTASSIUM 3.9 mmol/l (3.5-5.1); SGOT/AST 64 u/l (14-36); SODIUM 138 mmol/l (137-146); TOTAL PROTEIN 7.2 g/dL (6.3-8.2)
[2021-10-27 11:54] LABS: URINE BILIRUBIN - DIPSTICK NEGATIVE (NEGATIVE); URINE BLOOD DIPSTICK NEGATIVE (NEGATIVE); URINE COLOR YELLOW; URINE GLUCOSE - DIPSTICK NEGATIVE (NEGATIVE); URINE KETONE NEGATIVE (NEGATIVE); URINE LEUK ESTERASE NEGATIVE (NEGATIVE); URINE PH 6.5 (4.5-8.0); URINE PROTEIN - DIPSTICK NEGATIVE (NEG-TRACE); URINE UROBILINOGEN - DIPSTICK 0.2 E.U./dL (0.2)
[2021-10-27 12:02] LABS: URINE NITRITE - DIPSTICK NEGATIVE (Negative)
[2021-10-27] MEDS ORDERED: ONDANSETRON4 MG PO (12:12)
[2021-10-27 12:15] VITALS: BP 133/64
== END 2021-10-27 12:33 | disposition home or self-care (01) ==
LOC: ED 09:30
PROVIDERS: Family Medicine
DX: U07.1 COVID-19 (principal); A08.4 Viral intestinal infection, unspecified; E66.9 Obesity, unspecified; I10 Essential (primary) hypertension; F31.9 Bipolar disorder, unspecified; Z87.11 Personal history of peptic ulcer disease

== ENCOUNTER 2022-02-23 19:57 | Emergency (ER) | payer OTHER ==
[~2022-02-23] VITALS: Ht 160 cm; Wt 113.0 kg
[~2022-02-23 19:57] MED LIST changes: +ALPRAZOLAM0.25 MG PO; +D3 ULTRA ST5000 UNIT PO; +FOLIC ACID1 MG PO; +ONDANSETRON4 MG PO; +TOPIRAMATE50 MG PO; +VENLAFAXINE HCL75 M1 PO
[2022-02-23 20:25] LABS: HEMOGLOBIN 12.9 g/dl (12.0-16.0); IMMATURE GRANULOCYTES 0.2 % (0.0-5.0); MEAN CELL VOLUME 87.9 fL CALC (80.0-100.0); MEAN CORPUSCULAR HGB 28.4 pG CALC (26.0-32.0); MEAN CORPUSCULAR HGB CONC 32.3 g/dL CAL (32.0-36.0); NEUT# 6.42 thou/uL (2.00-7.15); RED BLOOD COUNT 4.55 mill/uL (4.20-5.60); RED CELL DISTRI WIDTH 13.6 % (11.5-15.5)
[2022-02-23 20:38] LABS: ALKALINE PHOSPHATASE 119 u/l (38-126); ANION GAP 12 (6-22 (CALC)); BILIRUBIN, TOTAL 0.3 mg/dL (0.0-1.4); BUN 14 mg/dL (7-17); BUN/CREATININE RATIO 12 (12-20 (CALC)); CARBON DIOXIDE 25 mmol/l (22-30); CHLORIDE 109 mmol/l (95-108); CREATININE 1.1 mg/dL (0.5-1.0); GFR 55 ML/MIN (>=60 (CALC)); GFR FOR AFR.AMER. > 60 ML/MIN (>=60 (CALC)); POTASSIUM 3.9 mmol/l (3.5-5.1); SGOT/AST 25 u/l (14-36); SODIUM 142 mmol/l (137-146)
[2022-02-23 20:49] LABS: MYOGLOBIN 30 ng/mL (0 - 62)
[2022-02-24] MEDS ORDERED: CYCLOBENZAPRINE10 MG PO (00:28)
[2022-02-24] MEDS ORDERED: NAPROXEN500 MG PO (00:28)
[2022-02-24 00:30] VITALS: BP 126/69
== END 2022-02-24 00:38 | disposition home or self-care (01) ==
LOC: ED 19:57
PROVIDERS: Emergency Medicine
DX: R07.89 Other chest pain (principal); S13.9XXA Sprain of joints and ligaments of unspecified parts of neck, initial encounter; I10 Essential (primary) hypertension; F31.9 Bipolar disorder, unspecified; X58.XXXA Exposure to other specified factors, initial encounter; Z98.84 Bariatric surgery status; Z87.11 Personal history of peptic ulcer disease; Z82.49 Family history of ischemic heart disease and other diseases of the circulatory system

== ENCOUNTER 2022-03-04 15:10 | Emergency (ER) | payer OTHER ==
[~2022-03-04] VITALS: Ht 160 cm; Wt 113.0 kg
[2022-03-04] VITALS (13 sets, daily range): BP systolic 109–129; BP diastolic 72–87
[~2022-03-04 15:10] MED LIST changes: +CYCLOBENZAPRINE10 MG PO; +NAPROXEN500 MG PO
[2022-03-04 15:36] LABS: HEMATOCRIT 40.8 % (37.0-47.0); HEMOGLOBIN 13.2 g/dl (12.0-16.0); MEAN CELL VOLUME 88.3 fL CALC (80.0-100.0); MEAN CORPUSCULAR HGB 28.6 pG CALC (26.0-32.0); MEAN CORPUSCULAR HGB CONC 32.4 g/dL CAL (32.0-36.0); NEUT# 5.45 thou/uL (2.00-7.15); RED BLOOD COUNT 4.62 mill/uL (4.20-5.60); RED CELL DISTRI WIDTH 13.3 % (11.5-15.5)
[2022-03-04 15:51] LABS: ALKALINE PHOSPHATASE 129 u/l (38-126); ANION GAP 13 (6-22 (CALC)); BILIRUBIN, TOTAL 0.4 mg/dL (0.0-1.4); BUN 15 mg/dL (7-17); BUN/CREATININE RATIO 14 (12-20 (CALC)); CARBON DIOXIDE 22 mmol/l (22-30); CHLORIDE 110 mmol/l (95-108); CREATININE 1.1 mg/dL (0.5-1.0); GFR 55 ML/MIN (>=60 (CALC)); GFR FOR AFR.AMER. > 60 ML/MIN (>=60 (CALC)); POTASSIUM 4.2 mmol/l (3.5-5.1); SGOT/AST 30 u/l (14-36); SODIUM 141 mmol/l (137-146)
== END 2022-03-04 18:12 | disposition home or self-care (01) ==
LOC: ED 15:10
PROVIDERS: Family Medicine
DX: R07.9 Chest pain, unspecified (principal); I10 Essential (primary) hypertension; F31.9 Bipolar disorder, unspecified; E66.9 Obesity, unspecified; Z87.11 Personal history of peptic ulcer disease; Z98.84 Bariatric surgery status

== ENCOUNTER → 2022-04-23 | Emergency (ER) | payer OTHER ==
[~2022-04-23] VITALS: Ht 160 cm; Wt 109.1 kg
[2022-04-23] VITALS (13 sets, daily range): BP systolic 105–153; BP diastolic 60–96
[~2022-04-23] MED LIST changes: +MIRALAX17 GM PO; +PREVACID30 M3 PO
[2022-04-23 14:15] LABS: HEMATOCRIT 41.1 % (37.0-47.0); HEMOGLOBIN 13.3 g/dl (12.0-16.0); IMMATURE GRANULOCYTES 0.1 % (0.0-5.0); MEAN CELL VOLUME 87.1 fL CALC (80.0-100.0); MEAN CORPUSCULAR HGB 28.2 pG CALC (26.0-32.0); MEAN CORPUSCULAR HGB CONC 32.4 g/dL CAL (32.0-36.0); NEUT# 6.18 thou/uL (2.00-7.15); RED BLOOD COUNT 4.72 mill/uL (4.20-5.60); RED CELL DISTRI WIDTH 13.2 % (11.5-15.5)
[2022-04-23 14:27] LABS: ALBUMIN 4.2 g/dL (3.2-5.0); ALKALINE PHOSPHATASE 128 u/l (38-126); AMYLASE 87 u/l (30-110); ANION GAP 13 (6-22 (CALC)); BILIRUBIN, TOTAL 0.3 mg/dL (0.0-1.4); BUN 17 mg/dL (7-17); BUN/CREATININE RATIO 13 (12-20 (CALC)); CARBON DIOXIDE 25 mmol/l (22-30); CHLORIDE 108 mmol/l (95-108); CREATININE 1.3 mg/dL (0.5-1.0); GFR FOR AFR.AMER. 55 ML/MIN (>=60 (CALC)); GFR OTHER RACES 45 ML/MIN (>=60 (CALC)); LIPASE 159 u/l (23-300); POTASSIUM 4.2 mmol/l (3.5-5.1); SGOT/AST 32 u/l (14-36); SODIUM 141 mmol/l (137-146); TOTAL PROTEIN 7.4 g/dL (6.3-8.2)
[2022-04-23 14:39] LABS: MYOGLOBIN 40 ng/mL (0 - 62)
[2022-04-23 15:59] LABS: URINE BILIRUBIN - DIPSTICK NEGATIVE (NEGATIVE); URINE BLOOD DIPSTICK NEGATIVE (NEGATIVE); URINE COLOR YELLOW; URINE GLUCOSE - DIPSTICK NEGATIVE (NEGATIVE); URINE KETONE NEGATIVE (NEGATIVE); URINE LEUK ESTERASE NEGATIVE (NEGATIVE); URINE PH 5.5 (4.5-8.0); URINE PROTEIN - DIPSTICK NEGATIVE (NEG-TRACE); URINE SPECIFIC GRAVITY >=1.030
[2022-04-23 16:01] LABS: URINE NITRITE - DIPSTICK NEGATIVE (Negative)
== END | disposition home or self-care (01) ==
LOC: ED 13:44
PROVIDERS: Emergency Medicine
DX: K59.00 Constipation, unspecified (principal); I10 Essential (primary) hypertension; F31.9 Bipolar disorder, unspecified; Z87.11 Personal history of peptic ulcer disease
CPT/HCPCS: Q9967

== ENCOUNTER 2022-12-17 20:31 | Emergency (ER) | payer OTHER ==
[~2022-12-17] VITALS: Ht 160 cm; Wt 107.0 kg
[2022-12-17] VITALS (12 sets, daily range): BP systolic 110–140; BP diastolic 69–91
[2022-12-17] MEDS ORDERED: PHENTERMINE37.5 MG PO (20:43)
[2022-12-17 21:24] LABS: BASO% 0.1 % (0-3); EOS% 0.7 % (0-8); HEMATOCRIT 43.4 % (37.0-47.0); HEMOGLOBIN 13.8 g/dl (12.0-16.0); IMMATURE GRANULOCYTES 0.6 % (0.0-5.0); MEAN CELL VOLUME 85.8 fL CALC (80.0-100.0); MEAN CORPUSCULAR HGB 27.3 pG CALC (26.0-32.0); MEAN CORPUSCULAR HGB CONC 31.8 g/dL CAL (32.0-36.0); NEUT# 9.6 thou/uL (2.00-7.15); NEUT% 71.6 % (42-76); RED BLOOD COUNT 5.06 mill/uL (4.20-5.60); RED CELL DISTRI WIDTH 13.2 % (11.5-15.5)
[2022-12-17 21:27] LABS: ALBUMIN 4.3 g/dL (3.2-5.0); ALKALINE PHOSPHATASE 141 u/l (38-126); ANION GAP 10 (6-22 (CALC)); BILIRUBIN, TOTAL 0.3 mg/dL (0.02-1.3); BUN 12 mg/dL (7-17); BUN/CREATININE RATIO 11 (12-20 (CALC)); CARBON DIOXIDE 24 mmol/l (22-30); CHLORIDE 108 mmol/l (95-108); CREATININE 1.1 mg/dL (0.5-1.0); GFR FOR AFR.AMER. > 60 ML/MIN (>=60 (CALC)); GFR OTHER RACES 55 ML/MIN (>=60 (CALC)); POTASSIUM 3.8 mmol/l (3.5-5.1); SGOT/AST 25 u/l (14-36); SODIUM 138 mmol/l (137-146); TOTAL PROTEIN 7.5 g/dL (6.3-8.2)
[2022-12-17] MEDS ORDERED: AMOXICILLIN500 MG PO (22:09)
[2022-12-17] MEDS ORDERED: CLARITIN10 M2 PO (22:09)
== END 2022-12-17 23:40 | disposition home or self-care (01) ==
LOC: ED 20:31
PROVIDERS: Emergency Medicine
DX: J02.0 Streptococcal pharyngitis (principal); I10 Essential (primary) hypertension; F31.9 Bipolar disorder, unspecified; Z87.11 Personal history of peptic ulcer disease; Z20.822 Contact with and (suspected) exposure to COVID-19

== ENCOUNTER 2023-01-01 17:49 | Emergency (ER) | payer OTHER ==
[~2023-01-01] VITALS: Ht 160 cm; Wt 106.1 kg
[~2023-01-01 17:49] MED LIST changes: +AMOXICILLIN500 MG PO; +CLARITIN10 M2 PO; +PHENTERMINE37.5 MG PO
[2023-01-01] MEDS ORDERED: AMOX/K CLAV875 M1 PO (19:26)
[2023-01-01 19:31] VITALS: BP 145/88
[2023-01-01 19:46] VITALS: BP 139/80
== END 2023-01-01 19:50 | disposition home or self-care (01) ==
LOC: ED 17:49
DX: J02.0 Streptococcal pharyngitis (principal); I10 Essential (primary) hypertension; F31.9 Bipolar disorder, unspecified; Z87.11 Personal history of peptic ulcer disease

== ENCOUNTER 2024-10-21 13:30 | Observation (INO) | payer OTHER ==
[2024-10-21] VITALS (17 sets, daily range): BP systolic 119–142; BP diastolic 59–85
[~2024-10-21] VITALS: Ht 160 cm; Wt 90.0 kg
[~2024-10-21 13:30] MED LIST changes: +AMOX/K CLAV875 M1 PO
[2024-10-21 14:14] LABS: BASO% 0.2 % (0-3); EOS% 0.8 % (0-8); HEMATOCRIT 46.3 % (37.0-47.0); HEMOGLOBIN 14.1 g/dl (12.0-16.0); LYMPH% 37.8 % (15-41); MEAN CORPUSCULAR HGB 28.5 pG CALC (26.0-32.0); MEAN CORPUSCULAR HGB CONC 30.5 g/dL CAL (32.0-36.0); MONO% 7.2 % (2-13); NEUT# 5.5 thou/uL (2.00-7.15); RED BLOOD COUNT 4.94 mill/uL (4.20-5.60); RED CELL DISTRI WIDTH 12.5 % (11.5-15.5)
[2024-10-21 14:22] LABS: INTERNATIONAL NORMALIZED RATIO 0.9 RATIO (0.7-1.3)
[2024-10-21 14:23] LABS: PROTHROMBIN TIME 9.9 SECONDS (9.0-12.5)
[2024-10-21 14:25] LABS: ALBUMIN 4.6 g/dL (3.2-5.0); BUN 15 mg/dL (7-17); BUN/CREATININE RATIO 13 (12-20 (CALC)); CARBON DIOXIDE 23 mmol/l (22-30); CHLORIDE 110 mmol/l (95-108); CREATININE 1.2 mg/dL (0.5-1.0); ESTIMATED GFR 58 ML/MIN (>=90 (CALC)); SGOT/AST 33 u/l (14-36); TOTAL CHOLESTEROL 205 mg/dl (0-199); TOTAL PROTEIN 7.7 g/dL (6.3-8.2); TOTAL TRIGLYCERIDES 226 mg/dl (0-149); VLDL CHOLESTROL 45 mg/dl (1-41 (CALC))
[2024-10-21 14:27] LABS: ANION GAP 12 (6-22 (CALC)); POTASSIUM 3.9 mmol/l (3.5-5.1); SODIUM 141 mmol/l (137-146)
[2024-10-21 14:29] LABS: ALKALINE PHOSPHATASE 109 u/l (38-126)
[2024-10-21] MEDS ORDERED: BUPROPION150 M3 PO (14:30)
[2024-10-21 14:31] LABS: CALCULATED LDLCHOLESTEROL 106 mg/dL (62-129 (CALC)); CHOLESTEROL HDL RATIO 3.8 (<4.4 (CALC)); HDL CHOLESTEROL 54 mg/dL (39.0-59.0)
[2024-10-21 14:38] LABS: BILIRUBIN, TOTAL 0.5 mg/dL (0.02-1.3)
[2024-10-21 14:53] LABS: MEAN CELL VOLUME 93.7 fL CALC (80.0-100.0)
[2024-10-21 15:28] LABS: URINE BILIRUBIN - DIPSTICK Negative (NEGATIVE); URINE BLOOD DIPSTICK Negative (NEGATIVE); URINE GLUCOSE - DIPSTICK Negative (NEGATIVE); URINE KETONE Negative (NEGATIVE); URINE LEUK ESTERASE Negative (NEGATIVE); URINE NITRITE - DIPSTICK Negative (Negative); URINE PH 5.5 (4.5-8.0); URINE PROTEIN - DIPSTICK Negative (NEG-TRACE); URINE SPECIFIC GRAVITY 1.015; URINE UROBILINOGEN - DIPSTICK 0.2 E.U./dL (0.2)
[2024-10-21 15:32] LABS: URINE COLOR Yellow
[2024-10-21] MEDS ORDERED: DEXTROSE 250 ML IV PRN (18:40)
[2024-10-21] MEDS ORDERED: FOLIC ACID1 M1 PO (19:38)
[2024-10-21] MEDS ORDERED: TOPIRAMATE 25 MG TAB PO SCH (21:00)
[2024-10-21] MEDS ORDERED: ATORVASTATIN CALCIUM 40 MG/TAB PO SCH (21:00)
[2024-10-21] MEDS ORDERED: ACETAMINOPHEN 325 MG/TAB PO PRN (21:45)
[2024-10-22 04:19] VITALS: BP 113/62
[2024-10-22 07:11] VITALS: BP 118/62
[2024-10-22] MEDS ORDERED: NITROGLYCERIN 0.4 MG/TAB SL PRN (08:30)
[2024-10-22] MEDS ORDERED: ASPIRIN 325 MG/TAB PO SCH ×2 (08:30→09:00)
[2024-10-22] MEDS ORDERED: ASPIRIN 81 MG/TAB PO SCH (09:00)
[2024-10-22] MEDS ORDERED: FOLIC ACID 1 MG/TAB PO SCH (09:00)
[2024-10-22] MEDS ORDERED: buPROPion HCL 150 MG TAB SR PO SCH (09:00)
[2024-10-22] MEDS ORDERED: PANTOPRAZOLE SODIUM Sesquihydr 40 MG/TAB PO SCH (09:00)
[2024-10-22] MEDS ORDERED: PATIENT' OWN MED 1 EA DOSE PO SCH (09:00)
[2024-10-22 10:46] VITALS: BP 110/59
[2024-10-22 16:44] VITALS: BP 98/63
[2024-10-22 19:09] VITALS: BP 118/71
[2024-10-22] MEDS ORDERED: ENOXAPARIN SODIUM 40 MG/0.4 ML SYR SC SCH (21:00)
[2024-10-23 00:36] VITALS: BP 111/51
[2024-10-23 05:38] VITALS: BP 114/67
[2024-10-23 05:49] LABS: BASO% 0.2 % (0-3); EOS% 0.8 % (0-8); HEMATOCRIT 43.3 % (37.0-47.0); HEMOGLOBIN 13.8 g/dl (12.0-16.0); IMMATURE GRANULOCYTES 0.1 % (0.0-5.0); LYMPH% 37.7 % (15-41); MEAN CORPUSCULAR HGB CONC 31.9 g/dL CAL (32.0-36.0); MONO% 7.7 % (2-13); NEUT# 5.07 thou/uL (2.00-7.15); NEUT% 53.5 % (42-76); RED BLOOD COUNT 4.76 mill/uL (4.20-5.60); RED CELL DISTRI WIDTH 12.3 % (11.5-15.5)
[2024-10-23 06:04] LABS: ALBUMIN 3.7 g/dL (3.2-5.0); BILIRUBIN, TOTAL 0.4 mg/dL (0.02-1.3); CREATININE 1.3 mg/dL (0.5-1.0); MAGNESIUM 2.3 mg/dL (1.6-2.3); POTASSIUM 3.8 mmol/l (3.5-5.1); TOTAL PROTEIN 6.2 g/dL (6.3-8.2)
[2024-10-23 07:51] VITALS: BP 132/42
[2024-10-23 08:43] VITALS: BP 132/42
[2024-10-23] MEDS ORDERED: ASPIRIN 81 MG/TAB PO SCH (09:00)
[2024-10-23 10:37] VITALS: BP 115/77
[2024-10-23] MEDS ORDERED: ASPIRIN81 MG PO (10:43)
[2024-10-23] MEDS ORDERED: NITROSTAT0.4 MG SL (10:44)
[2024-10-23 11:20] VITALS: BP 115/77
== END 2024-10-23 12:47 | disposition home or self-care (01) ==
LOC: ED 13:30 → ED-I 17:00 → ED 17:24 → MS2 17:25
PROVIDERS: Internal Medicine; Nurse Practitioner; ADMIT Internal Medicine; ATTEND Internal Medicine
DX: G45.9 Transient cerebral ischemic attack, unspecified (principal); R07.89 Other chest pain; I12.9 Hypertensive chronic kidney disease with stage 1 through stage 4 chronic kidney disease, or unspecified chronic kidney disease; N18.9 Chronic kidney disease, unspecified; G43.909 Migraine, unspecified, not intractable, without status migrainosus; F90.9 Attention-deficit hyperactivity disorder, unspecified type; F31.9 Bipolar disorder, unspecified; E07.9 Disorder of thyroid, unspecified; Z87.11 Personal history of peptic ulcer disease
CPT/HCPCS: G0378; J1650; Q9967